=== PATIENT | male | born 1930 | race Caucasian/White ===

== ENCOUNTER 2016-04-14 20:14 | Inpatient (IN) | payer MEDICARE ==
[~2016-04-14] VITALS: Ht 177.8 cm; Wt 79.0 kg
--- NOTE | ~2016-04-14 | PR ---
[place], [place] PROGRESS NOTE NAME: RUDY MATSON UNIT #: [id number] ROOM: 309 DOCTOR: BRENDA SHAFFER MD BIRTHDATE: [birth year] DOS: ADDENDUM Above note reviewed. Agree with observations, recommendations, and overall treatment plan. BRENDA SHAFFER MD CM:PNTRANS [id number] BRENDA SHAFFER MD 06/12/16 1429 interface
--- NOTE | ~2016-04-14 | WRIGHTHP ---
[place], [place] PATIENT HISTORY AND PHYSICAL EXAM NAME: RUDY MATSON UNIT #: [id number] ROOM: 309 DOCTOR: BRENDA SHAFFER MD BIRTHDATE: [birth year] DOS: 04/15/2016 INITIAL PSYCHIATRIC EVALUATION CHIEF COMPLAINT: The patient mumbled nonsensically. HISTORY OF PRESENT ILLNESS: This is an 85-year-old white male who is a resident of [facility]. The patient is admitted here to the [facility] due to a significant change in mental status. The patient had become increasingly agitated and aggressive there. He was wandering in and out of other resident's rooms, becoming physically aggressive with residents and staff. He was hitting and kicking others. He was making significant threats, attempts to redirect were only met with him becoming increasingly more agitated and physically aggressive. The patient's current medication regimen was ineffective at controlling his behaviors as he represented a significant risk of harm to self and others. He was admitted here to the [facility] to rule out any organic factors and to stabilize on medication. PAST MEDICAL HISTORY: Remarkable for atrial fibrillation, benign prostatic hypertrophy, dementia, aphasia, hearing loss, hypertension, mitral valve prolapse, a nondisplaced fracture of the humerus. MENTAL STATUS: Mental status this morning was limited by his lack of cooperation. The patient did receive p.r.n. intervention last evening due to significant agitation. He was having some residual somnolence this morning. He did mumble a few words and did state that he was going to get up and have breakfast. Otherwise, he was not responding adequately to my questions. DIAGNOSES: Brief psychotic disorder and Alzheimer dementia. PLAN: I have already stopped his Aricept in lieu of Exelon patch 4.6 mg a day and augmented this with Namenda 5 mg a day. The patient was on Seroquel, which was ineffective at controlling his symptoms. I discontinue this in lieu of Depakote 500 mg 3 times a day. We will continue to monitor and support with the ultimate plan to return back to [facility] when stable. [place], [place] PATIENT HISTORY AND PHYSICAL EXAM NAME: RUDY MATSON UNIT #: [id number] ROOM: 309 DOCTOR: BRENDA SHAFFER MD BIRTHDATE: [birth year] BRENDA SHAFFER MD CM:PHYS:PATIENT HISTORY AND PHYSICAL EXAMINATION [id number] BRENDA SHAFFER MD 04/15/16 1207 interface
--- NOTE | ~2016-04-14 | PR ---
[place], [place] PROGRESS NOTE NAME: RUDY MATSON UNIT #: [id number] ROOM: 309 DOCTOR: MIS JEONG BIRTHDATE: [birth year] DOS: 04/18/2016 CHIEF COMPLAINT: The patient was nonverbal. SUMMARY OF VISIT: The patient was assessed in the quiet room across from the nurses' station. He is nonverbal, did not make eye contact, cold to touch, almost marshall to coloring. I have ordered some stat labs. I have also asked that we reach out to the hospitalist. The patient is not taking any of his meds, appears to be going more medical than anything. MENTAL STATUS: He is alert and that is about it. There are no signs of auditory or visual hallucinations. There has been no behaviors. PLAN: I am going to go ahead and decrease his Depakote even though he is not taking it right now. We will keep him on the Exelon and Namenda for now. I am going to have a hospitalist round on him, like I said, getting full set of labs, see if there is something else possibly going on with this gentleman and start working him up from a more medical-organic standpoint right now than psych. DEANNA JEONG CNP CM:PNTRANS [id number] MIS JEONG 04/18/16 1515 interface
--- NOTE | ~2016-04-14 | PR ---
[place], [place] PROGRESS NOTE NAME[facility] MATSON [id number] UNIT #: [id number] ROOM: 309 DOCTOR: MIS JEONG BIRTHDATE: [birth year] DOS: 04/16/2016 CHIEF COMPLAINT: "Good morning." SUMMARY OF VISIT: The patient was assessed in the dining room where he was being fed breakfast. He smiled and attempted to say good morning to me. When I first came on the unit, I could hear him growling and making audible sounds in his room. Apparently, this is his baseline. MENTAL STATUS: He is alert and oriented to name, I do not think place or time. I cannot tell that he is having overt auditory or visual hallucinations, delusions, or paranoia. He just can be agitated and very vocal. PLAN: Dr. Davila made some significant medication change yesterday. He is on Exelon patch. He also started him on Depakote 500 mg t.i.d., which is a large dose. I will check a valproic acid level tomorrow. I discussed with Dr. Davila. We will see how he does over the next 24 hours and then we can make adjustments if appropriate. At that time, hopefully we have the lab back to see where his baseline VPA level is and long-term goal is to get him back to [facility] once stable. DEANNA JEONG CNP CM:PNTRANS [id number] MIS JEONG 05/21/16 1359 interface
--- NOTE | ~2016-04-14 | PR ---
[place], [place] PROGRESS NOTE NAME: RUDY MATSON UNIT #: [id number] ROOM: 309 DOCTOR: SPIKE CRUZ DO BIRTHDATE: [birth year] DOS: 04/17/2016 CHIEF COMPLAINT: "Hello." SUMMARY OF VISIT: The patient was interviewed in the dining room while he was eating breakfast. The patient did attempt to have a conversation; however, he was only able to mumble his words. The patient did smile and he was interactive during the interview. MENTAL STATUS: The patient is alert and oriented to name, unclear if the patient is oriented to place or time. There are no overt auditory or visual hallucinations, delusions or paranoia. The patient seems to be trending towards euthymia. PLAN: Currently, the patient's valproic acid level is 60.5 which is therapeutic. We will increase Namenda to 5 mg b.i.d. and Exelon patch to 9.5 mg daily. We will continue to monitor the patient and we will also encourage the patient to interact in individual and boyer milieu for the possibility and goal to go back to [facility] once psychiatrically stable. SPIKE CRUZ DO BRENDA SHAFFER MD CM:PNLISA [phone] [id number] SPIKE CRUZ DO 04/17/16911 interface
--- NOTE | ~2016-04-14 | DS ---
[place], [place] DISCHARGE SUMMARY NAME: RUDY MATSON UNIT #: [id number] ROOM: 309 DOCTOR: MIS JEONG BIRTHDATE: [birth year] DOS: 04/18/2016 HISTORY OF PRESENT ILLNESS: An 85-year-old male resident at [facility] admitted to [facility] due to significant mental status change, increasingly agitated, aggressive, wandering in and out of others room, physically aggressive with the residents and staff, making verbal threats, difficult to redirect. PAST MEDICAL HISTORY: Remarkable for AFib, BPH, dementia, aphasia, hearing loss, hypertension, mitral valve prolapse, nondisplaced fracture of the humerus. DIAGNOSIS: Brief psychotic disorder secondary to dementia. We stopped his Aricept in lieu Exelon, Seroquel is ineffective, so we had started him on Depakote. His final renal medications included the Depakote, which I had decreased due to some somnolence along with the Exelon and Namenda. The patient I believe is having the advanced effects of Alzheimer's and there is not a lot that we can do for him at this point in time, but we were able to manage his behaviors without issue. MENTAL STATUS: He was alert and oriented to name only. No signs of auditory or visual hallucinations, delusions, paranoia. Behaviors were controlled. PLAN: He is up on Depakote 250 mg t.i.d. His Depakote level now used to be checked in 10 days, he was on Exelon 9.5 mg every day, Namenda 5 mg b.i.d. with the goal to eventually titrate that up to 10 mg b.i.d. There was also found to be vitamin D deficient and also found to have a significant urinary tract infection, which we treated him for and he responded to. The patient is being discharged back in stable condition. However, it is our recommendations that he be put on hospice care. [place], [place] DISCHARGE SUMMARY NAME: RUDY MATSON UNIT #: [id number] ROOM: 309 DOCTOR: MIS JEONG BIRTHDATE: [birth year] DEANNA JEONG CNP CM:ALLISON [id number] MIS JEONG 04/19/16 2154 interface
[2016-04-14] MEDS ORDERED: ATIVAN1 MG PO (20:44)
[2016-04-14] MEDS ORDERED: LISINOPRIL-HYDR1 TA1 PO (20:46)
[2016-04-14] MEDS ORDERED: ARICEPT10 M1 PO (20:46)
[2016-04-14] MEDS ORDERED: CARDIZEM120 MG PO (20:47)
[2016-04-14] MEDS ORDERED: CARDIZEM CD120 M2 PO (20:48)
[2016-04-14] MEDS ORDERED: COUMADIN2 MG PO (20:49)
[2016-04-14] MEDS ORDERED: COUMADIN1 M1 PO (20:50)
[2016-04-14] MEDS ORDERED: SEROQUEL50 MG PO (20:50)
[2016-04-14] MEDS ORDERED: QUETIAPINE FUM100 M1 PO (20:51)
[2016-04-14] MEDS ORDERED: ZOLOFT50 MG PO (20:52)
[2016-04-14 22:30] VITALS: BP 132/80
[2016-04-14 22:49] VITALS: BP 132/80
[2016-04-15 07:46] LABS: BASO % 0.5 % (0.0-1.0); EOS # 0.1 10*3/uL (0.0-0.4); EOS % 1.9 % (1.0-4.0); HEMATOCRIT 43.2 % (42.0-52.0); HEMOGLOBIN 14.8 g/dl (14.0-18.0); IG # 0.1 10*3/uL (0.0-0.1); LYMPH # 1.5 10*3/uL (1.3-4.4); LYMPH % 22.6 % (27.0-41.0); MEAN CELL VOLUME 95.6 fl (80.0-94.0); MEAN CORPUSCULAR HGB 32.7 pg (27.0-31.0); MEAN CORPUSCULAR HGB CONC 34.3 g/dl (33.0-37.0); MEAN PLATELET VOLUME 10.2 fl (9.6-12.3); MONO # 0.6 10*3/uL (0.1-1.0); MONO % 8.6 % (3.0-9.0); NEUT # 4.2 10*3/uL (2.3-7.9); NEUT % 65.2 % (47.0-73.0); PLATELET COUNT AUTOMATED 115 10*3/uL (130-400); RED BLOOD COUNT 4.52 10*6/uL (4.50-5.90); RED CELL DISTRI WIDTH 12.2 % (0-14.5); WHITE BLOOD COUNT 6.4 10*3/uL (4.8-10.8)
[2016-04-15 07:55] VITALS: BP 107/73
[2016-04-15 08:13] LABS: INTERNATIONAL NORM RATIO 1.4 (2.0-3.5); PROTHROMBIN TIME 14.7 SECONDS (9.0-12.4)
[2016-04-15 08:31] LABS: ALKALINE PHOSPHATASE 79 U/L (45-117); BILIRUBIN, TOTAL 0.7 mg/dl (0.2-1.0); BUN 23 mg/dl (7-24); CARBON DIOXIDE 28 mmol/L (21-32); CHLORIDE 107 mmol/L (98-107); CHOLESTEROL 109 mg/dL (<200); EST GLOM FILT AFRICAN AMERICAN > 60 ml/min; GLUCOSE 83 mg/dL (65-99); HDL CHOLESTEROL 28 mg/dl (40-60); LDL CHOLESTEROL 67 mg/dL (9-159); POTASSIUM 3.9 mmol/L (3.5-5.1); SGOT/AST 23 IU/L (3-35); SGPT/ALT 25 U/L (12-78); SODIUM 144 mmol/L (136-145); THYROID STIM HORMONE (HS) 0.797 uIU/ml (0.358-4.75); TOTAL PROTEIN 6.4 gm/dL (6.4-8.2); TRIGLYCERIDES 70 mg/dl (<150); VLDL CHOLESTEROL 14 mg/dL (6-40)
[2016-04-15 09:43] LABS: VITAMIN D, 25-HYDROXY 16.3 ng/mL (30-100)
[2016-04-15 09:44] LABS: FOLIC ACID 10.47 ng/mL (>5.38)
[2016-04-15 19:48] VITALS: BP 122/78
[2016-04-16 07:38] VITALS: BP 145/69
[2016-04-16 19:57] VITALS: BP 152/84
[2016-04-16 23:03] LABS: BILIRUBIN 1+ (NEGATIVE); BLOOD 3+ (NEGATIVE); CLARITY SL CLOUDY (CLEAR); COLOR YELLOW (YELLOW); GLUCOSE NEGATIVE (NEGATIVE); KETONE TRACE (NEGATIVE); LEUKO ESTERASE TRACE (NEGATIVE); NITRITE NEGATIVE (NEGATIVE); PH 5.5 (5.0-9.0); PROTEIN 2+ (NEGATIVE); SPECIFIC GRAVITY >= 1.030 (1.005-1.030)
[2016-04-16 23:12] LABS: BACTERIA 4+; MUCOUS TRACE; RBC 31-40 rbc/hpf (0-2); URINE REFLEX COMMENT YES (NO); WBC 21-30 wbc/hpf (0-5)
[2016-04-17 08:11] LABS: INTERNATIONAL NORM RATIO 1.8 (2.0-3.5); PROTHROMBIN TIME 19.4 SECONDS (9.0-12.4)
[2016-04-17 08:34] VITALS: BP 117/73
[2016-04-17 11:07] VITALS: BP 144/96
[2016-04-17 19:52] VITALS: BP 146/74
[2016-04-18 07:48] VITALS: BP 134/70
[2016-04-18 09:41] LABS: BASO % 0.3 % (0.0-1.0); EOS % 0.4 % (1.0-4.0); HEMATOCRIT 52.5 % (42.0-52.0); HEMOGLOBIN 17.6 g/dl (14.0-18.0); IG # 0.1 10*3/uL (0.0-0.1); LYMPH # 1.6 10*3/uL (1.3-4.4); LYMPH % 17.2 % (27.0-41.0); MEAN CELL VOLUME 95.6 fl (80.0-94.0); MEAN CORPUSCULAR HGB 32.1 pg (27.0-31.0); MEAN CORPUSCULAR HGB CONC 33.5 g/dl (33.0-37.0); MEAN PLATELET VOLUME 10.3 fl (9.6-12.3); MONO # 0.8 10*3/uL (0.1-1.0); MONO % 8.5 % (3.0-9.0); NEUT # 6.6 10*3/uL (2.3-7.9); NEUT % 72.3 % (47.0-73.0); PLATELET COUNT AUTOMATED 158 10*3/uL (130-400); RED BLOOD COUNT 5.49 10*6/uL (4.50-5.90); RED CELL DISTRI WIDTH 12.2 % (0-14.5); WHITE BLOOD COUNT 9.2 10*3/uL (4.8-10.8)
[2016-04-18 10:10] LABS: ALBUMIN 3.4 gm/dl (3.1-4.5); ALKALINE PHOSPHATASE 93 U/L (45-117); BILIRUBIN, TOTAL 0.8 mg/dl (0.2-1.0); BUN 29 mg/dl (7-24); CARBON DIOXIDE 29 mmol/L (21-32); CHLORIDE 106 mmol/L (98-107); EST GLOM FILT AFRICAN AMERICAN > 60 ml/min; GLUCOSE 89 mg/dL (65-99); POTASSIUM 4.6 mmol/L (3.5-5.1); SGOT/AST 48 IU/L (3-35); SGPT/ALT 32 U/L (12-78); SODIUM 143 mmol/L (136-145); TOTAL PROTEIN 7.9 gm/dL (6.4-8.2)
[2016-04-18] MEDS ORDERED: CIPROFLOXACIN500 M4 PO (13:57)
[2016-04-18] MEDS ORDERED: Coumadin2 MG PO (13:57)
[2016-04-18] MEDS ORDERED: BACTROBAN OINT0.9 GM T (14:00)
[2016-04-18] MEDS ORDERED: CATAPRES-TTS 10.1 MG T (14:00)
[2016-04-18] MEDS ORDERED: DOXYCYCLINE100 M3 PO (14:00)
[2016-04-18] MEDS ORDERED: VITAMIN D50000 I3 PO (14:00)
[2016-04-18] MEDS ORDERED: Nystatin Cream15 GM T (14:00)
[2016-04-18] MEDS ORDERED: CEFTRIAXONE1 GM IM (14:08)
== END 2016-04-18 15:05 | disposition other institution (70) | DRG 57 ==
LOC: 3N 20:14
PROVIDERS: Internal Medicine; Nurse Practitioner Adult Health; Psychiatry & Neurology Psychiatry
DX: G30.9 Alzheimer's disease, unspecified (principal); E44.0 Moderate protein-calorie malnutrition; F02.81 Dementia in other diseases classified elsewhere, unspecified severity, with behavioral disturbance; R47.01 Aphasia; I48.0 Paroxysmal atrial fibrillation; N39.0 Urinary tract infection, site not specified; I10 Essential (primary) hypertension; E55.9 Vitamin D deficiency, unspecified; F23 Brief psychotic disorder; N40.0 Benign prostatic hyperplasia without lower urinary tract symptoms; F41.9 Anxiety disorder, unspecified; F32.9 Major depressive disorder, single episode, unspecified; F25.9 Schizoaffective disorder, unspecified; H91.93 Unspecified hearing loss, bilateral; Z66 Do not resuscitate; Z79.01 Long term (current) use of anticoagulants; Z68.24 Body mass index [BMI] 24.0-24.9, adult